=== PATIENT | male | born 1975 | race Caucasian/White ===

== ENCOUNTER 2020-12-13 19:08 | Emergency (ER) | payer SELFPAY ==
[~2020-12-13] VITALS: Ht 180.3 cm; Wt 77.1 kg
[2020-12-13 19:42] LABS: BASOPHILS % 0.4 % (0.0-1.0); EOSINOPHILS # (AUTO) 0.1 (0.0-0.4); EOSINOPHILS % 1.3 % (0.0-6.0); HEMATOCRIT 42.9 % (38.2-49.6); LYMPHOCYTES # (AUTO) 0.8 (1.0-3.2); LYMPHOCYTES % 8.5 % (18.0-39.1); MEAN CORPUSCULAR HEMOGLOBIN 29.9 pg (28-32); MEAN CORPUSCULAR HGB CONC 32.6 g/dL (31-35); MEAN CORPUSCULAR VOLUME 91.7 fL (81-99); MONOCYTES # (AUTO) 0.9 (0.2-0.8); MONOCYTES % 8.6 % (4.4-11.3); NEUTROPHILS % 80.4 % (38.7-80.0); PLATELET COUNT 332 x10e3/uL (140-360); RED BLOOD COUNT 4.68 x10e6/uL (4.3-5.7); RED CELL DISTRIBUTION WIDTH 14.7 % (11.7-14.4)
[2020-12-13 19:54] LABS: COLOR,URINE YELLOW (YELLOW)
[2020-12-13 19:55] LABS: CLARITY,URINE CLEAR (CLEAR); KETONES,URINE NEGATIVE (NEGATIVE); LEUKOCYTE ESTERASE ,URINE NEGATIVE (NEGATIVE); NITRITE,URINE NEGATIVE (NEGATIVE); PROTEIN,URINE DIPSTICK >=300 (NEGATIVE); URINE UROBILINOGEN 4 mg/dL (0.2 - 1)
[2020-12-13 19:59] LABS: BACTERIA,URINE RARE /HPF; EPITHELIAL CELLS,URINE FEW /LPF; HYALINE CASTS 0-1 (0-1); RBC,URINE 0-5 /HPF (0-5); WBC,URINE (MAN) 0-5 /HPF (0-5)
[2020-12-13 20:02] LABS: ALBUMIN 1.1 g/dL (3.5-5.0); ALBUMIN/GLOBULIN RATIO 0.2 (0.8-2.0); ANION GAP 8.8 mmol/L (8-16); CALCIUM 7.6 mg/dL (8.4-10.2); CREATININE, SERUM 1.17 mg/dL (0.72-1.25); POTASSIUM 3.8 mmol/L (3.5-5.1)
[2020-12-13 20:14] LABS: AMPHETAMINES SCREEN,URINE POSITIVE (NEGATIVE); BENZODIAZEPINES SCREEN,URINE NEGATIVE (NEGATIVE); PHENCYCLIDINE SCREEN,URINE NEGATIVE (NEGATIVE)
[2020-12-13] MEDS ORDERED: SODIUM CHLORIDE 0.9% 50ML 50 ML ONE (20:52)
[2020-12-13] MEDS ORDERED: IOPAMIDOL 370 MG/ML 200 ML INFUS..BTL INJ ONE (20:53)
[2020-12-13] MEDS ORDERED: IBUPROFEN 600 MG TAB PO STA (21:20)
[2020-12-13] MEDS ORDERED: ACETAMINOPHEN 325 MG TAB PO ONE (21:30)
[2020-12-13] MEDS ORDERED: IBUPROFEN 600 MG TAB ONE (21:31)
[2020-12-13 22:41] VITALS: BP 113/82
== END 2020-12-13 22:50 | disposition home or self-care (01) ==
LOC: ER 19:50
DX: R10.84 Generalized abdominal pain (principal); R11.2 Nausea with vomiting, unspecified; R74.01 Elevation of levels of liver transaminase levels; R51.9 Headache, unspecified; R21 Rash and other nonspecific skin eruption; E03.9 Hypothyroidism, unspecified; B20 Human immunodeficiency virus [HIV] disease; F17.210 Nicotine dependence, cigarettes, uncomplicated
CPT/HCPCS: 36415; 71045; 74177; 80053; 80307; 81001; 83690; 85025; 99284; C9113; Q9967